=== PATIENT | female | born 1985 | race African-American/Black ===

== ENCOUNTER 2020-09-08 09:12 | Emergency (ER) | payer OTHER ==
[~2020-09-08] VITALS: Ht 157.5 cm; Wt 113.0 kg
[2020-09-08] MEDS ORDERED: IBUP-2028 MT (10:31)
[2020-09-08] MEDS ORDERED: CETI10TA6 MT (10:31)
[2020-09-08 10:34] VITALS: BP 127/69
== END 2020-09-08 10:43 | disposition home or self-care (01) ==
LOC: ER 09:12
DX: J02.9 Acute pharyngitis, unspecified (principal)
CPT/HCPCS: 99282